=== PATIENT | male | born 1980 | race Caucasian/White ===

== ENCOUNTER 2021-05-12 15:35 | Emergency (ER) | payer MEDICAID ==
[~2021-05-12] VITALS: Ht 162.6 cm; Wt 76.0 kg
[2021-05-12] MEDS ORDERED: INDO-13 PO (15:54)
[2021-05-12] MEDS ORDERED: LANS15CA17 PO (15:54)
[2021-05-12] MEDS ORDERED: VISCOUS LIDOCAINE 2% 15 ML UDC PO STA (20:19)
[2021-05-12] MEDS ORDERED: MAGNESIUM/ALUMINUM HYDROXIDE/SIMETHICONE 30ML UDC PO STA (20:19)
[2021-05-12 21:04] LABS: CHLORIDE 107 mEq/L (98-107)
[2021-05-12 21:05] LABS: BASOPHILS % 0.9 % (0.0-2.0); EOSINOPHILS % 1.2 % (0.0-5.0); HEMATOCRIT. 46.9 % (42.0-52.0); HEMOGLOBIN. 16.5 g/dL (14.0-18.0); LYMPHOCYTES % 26.4 % (20.0-50.0); MEAN CORPUSCULAR HEMOGLOBIN 31.4 pg (28.0-32.0); MEAN CORPUSCULAR VOLUME 89.5 fL (80.0-94.0); MONOCYTES % 9.5 % (2.0-8.0); PLATELET 352 x1000/uL (130-400); RED BLOOD CELL COUNT 5.24 mill/uL (4.7-6.1); RED CELL DISTRIBUTION WIDTH 13.3 % (11.6-14.6)
[2021-05-12] MEDS ORDERED: MAG-55 MT (23:10)
[2021-05-12] MEDS ORDERED: FAMO-135 MT (23:10)
[2021-05-12 23:17] VITALS: BP 112/97
== END 2021-05-12 23:20 | disposition home or self-care (01) ==
LOC: ER 15:35
DX: K29.70 Gastritis, unspecified, without bleeding (principal); K76.0 Fatty (change of) liver, not elsewhere classified; Z79.899 Other long term (current) drug therapy
CPT/HCPCS: 36415; 76705; 80053; 85025; 93005; 99285

== ENCOUNTER 2022-07-06 12:18 | Emergency (ER) | payer MEDICAID ==
[~2022-07-06] VITALS: Ht 165.1 cm; Wt 65.0 kg
[~2022-07-06 12:18] MED LIST: FAMO-135 MT; INDO-13 PO; LANS15CA17 PO; MAG-55 MT
[2022-07-06 14:16] LABS: CLARITY URINE TURBID (CLEAR); COLOR URINE RED (YELLOW); KETONES URINE NEGATIVE (NEGATIVE); LEUKOCYTE ESTERASE URINE 3+ (NEGATIVE); NITRITE URINE POSITIVE (NEGATIVE); OCCULT BLOOD URINE 1+ (NEGATIVE); PROTEIN URINE 2+ (NEGATIVE); SPECIFIC GRAVITY URINE 1.023 (1.005-1.030); UROBILINOGEN URINE 0.2 E.U./dL (0.2-1.0)
[2022-07-06] MEDS ORDERED: CEPH500C2 MT (15:47)
[2022-07-06 15:58] LABS: BASOPHILS % 0.9 % (0.0-2.0); EOSINOPHILS % 1.6 % (0.0-5.0); HEMATOCRIT. 46.6 % (42.0-52.0); HEMOGLOBIN. 15.8 g/dL (14.0-18.0); LYMPHOCYTES % 19.9 % (20.0-50.0); MEAN CORPUSCULAR HEMOGLOBIN 30.8 pg (28.0-32.0); MEAN CORPUSCULAR VOLUME 90.8 fL (80.0-94.0); MEAN PLATELET VOLUME 8.5 fl (7.4-10.4); NEUTROPHILS % 68.6 % (40.0-76.0); PLATELET 396 x1000/uL (130-400); RED BLOOD CELL COUNT 5.13 mill/uL (4.7-6.1)
[2022-07-06 16:00] VITALS: BP 115/73
[2022-07-06 16:44] LABS: CHLORIDE 106 mEq/L (98-107)
== END 2022-07-06 16:56 | disposition home or self-care (01) ==
LOC: ER 12:47
DX: N39.0 Urinary tract infection, site not specified (principal)
CPT/HCPCS: 36415; 76857; 80053; 81003; 85025; 87086; 99284; Z7610